=== PATIENT | male | born 1990 | race Caucasian/White ===

== ENCOUNTER 2019-03-17 06:04 | Emergency (ER) | payer SELFPAY ==
[2019-03-17] VITALS (7 sets, daily range): BP systolic 148–164; BP diastolic 94–105; PULSE 78–105; RESP 16–20; TEMP 36.7; O2SAT 92–100; BMI 28.3
[2019-03-17] MEDS: Propofol 200 MG/20 ML Vial IV BOLUS (06:57)
--- NOTE | 2019-03-17 07:13 | ED.DCSUM_ITS ---
- ER Visit Summary Date of Service: 03/17/19 Chief Complaint: Pain and swelling of lip History of Present Illness: The patient is a 28 M who presents with an abscess. Over the past 3 days he does develop redness pain swelling and drainage below his nose and at his upper lip. No history of prior similar symptoms. He is not diabetic. He denies fevers nausea vomiting. No chills. Physical Examination: Afebrile blood pressure 164/98 vitals otherwise normal Patient has a large abscess just below the nose and above the upper lip with some spontaneous drainage just below the nasal septum as well as fluctuance Heart regular rate and rhythm Lungs clear Airway patent Test Results: Not indicated Emergency Department Course and Treatment: Patient has a large abscess in an area that is very difficult to locally anesthetized. I felt this would be best tolerated under procedural sedation. I discussed the risks and benefits of this with the patient. He underwent procedural sedation with IV propofol. The open area that spontaneously draining was extended with an 11 blade and loculations were broken up with a curved hemostat and there was copious purulent drainage. He did have some associated pain but this was otherwise well-tolerated without any immediate complications. Bleeding was controlled with direct pressure. On reevaluation patient is resting comfortably. He will be discharged on Keflex and Bactrim. He was given clear return precautions with specific signs and symptoms to monitor for. He was advised on supportive care including warm compresses. He understands to return for new or worsening symptoms and was discharged home. Treatment Plan: [] Disposition: Discharge Impression: Facial abscess Procedural sedation Incision and drainage of abscess This note was generated with [email or web address] dictation software. It may contain incorrect words, spelling, and punctuation that were not noted in review of the chart prior to signing ED Disposition - Plan for ED Patient: Referrals: Care Physician,No Primary [Primary Care Provider] -
--- NOTE | 2019-03-17 07:13 | ED.DEP ---
ED Disposition - Plan for ED Patient: Instructions: ED Abscess IandD Prescriptions: Cephalexin [Keflex] 500 mg PO Q6 #40 cap Smz/Tmp Ds [Bactrim Ds] 1 tab PO BID #20 tab Referrals: Care Physician,No Primary [Primary Care Provider] -
== END 2019-03-17 07:33 | disposition home or self-care (01) ==
LOC: ED 06:32
PROVIDERS: Emergency Provider Emergency Medicine
DX: L02.01 Cutaneous abscess of face (principal)
CPT/HCPCS: 10060; 99152; 99283; J7030

== ENCOUNTER 2019-09-15 23:16 | Emergency (ER) | payer SELFPAY ==
[2019-03-17 06:05] VITALS: BMI 28.3
[2019-09-15 23:19] VITALS: BP 134/98; PULSE 148; RESP 25; TEMP 36.9; O2SAT 98; BMI 26.5
[2019-09-15 23:25] VITALS: PULSE 133
[2019-09-16 01:00] LABS: Alcohol, Blood (Medical)-Serum < 3.0 mg/dL
[2019-09-16 01:06] LABS: Amphetamine Urine VISTA POSITIVE (<1000 ng/mL); Barbiturate Urine VISTA NEGATIVE (< 200 ng/mL); Benzodiazepine Urine VISTA NEGATIVE (< 200 ng/mL); Cocaine Urine VISTA NEGATIVE (< 300 ng/mL); Ecstacy Urine VISTA POSITIVE (< 500 ng/mL); Methadone Urine VISTA NEGATIVE (< 300 ng/mL); PCP Urine VISTA NEGATIVE (< 25 ng/mL); THC Urine VISTA NEGATIVE (< 50 ng/mL); Vista UDS pH Range 5
--- NOTE | 2019-09-16 01:17 | ED.DCSUM_ITS ---
- ER Visit Summary Date of Service: 09/16/19 Chief Complaint: [Drug overdose] History of Present Illness: The patient is a 28 M [presents to the emergency department via EMS. EMS was summoned to the home of the individual for possible overdose by the patient's girlfriend. EMS has responded the same location multiple times in the past for drug overdose. Patient admitted to using methamphetamines possibly laced with heroin. Patient does have history of using heroin and methamphetamines. On EMS arrival patient was ANO x3. Patient was having some jerking of the upper extremities. On arrival to the ER patient states that he does not really have much recollection of what he may have taken. Patient feels a little confused and just very tired. Patient states he came home from work and was just hanging out with some friends. He denies recent illness. He denies suicidal or homicidal ideation. He denies depression.] Physical Examination: [HEENT-PERRLA, EOMI. Cranial nerves II through XII grossly intact. TMs clear. Mucous membranes moist. No adenopathy. Cardiovascular-regular and tachycardic with heart rate in the 110s on my evaluation of the patient. Lungs-clear to auscultation, chest wall stable without crepitus or subcu emphysema Abdomen-normoactive bowel sounds, soft, nontender, no rebound or rigidity, no peritoneal signs. Extremities-intact ?4, normal range of motion, normal pulses, atraumatic] Test Results: [EtOH was negative. Tox screen was positive for opiates as well as amphetamines and MDMA] Emergency Department Course and Treatment: [Patient was observed on monitor for over 2 hours. He is been up to the restroom several times. He is resting comfortably. He will be observed in the department until he can find a ride home.] Treatment Plan: [Patient advised to follow-up with his primary care physician and also recommended discontinuing drug use and following up as an outpatient with 180.] Disposition: [Discharged home in stable condition] Impression: [Accidental drug overdose Illicit drug use] This note was generated with [employer] software. It may contain incorrect words, spelling, and punctuation that were not noted in review of the chart prior to signing ED Disposition - Plan for ED Patient: Referrals: Care Physician,No Primary [Primary Care Provider] -
--- NOTE | 2019-09-16 01:24 | ED.DEP ---
ED Disposition - Plan for ED Patient: Instructions: Drug Abuse Referrals: Care Physician,No Primary [Primary Care Provider] - Rocky Wilson MD [NON-STAFF] - 5-7 Days Additional Instructions: Follow up with [facility] ([facility])
[2019-09-16 02:23] VITALS: RESP 12
[2019-09-16 05:26] VITALS: PULSE 77; RESP 17; O2SAT 98
[2019-09-16 07:02] VITALS: BP 163/80; PULSE 106; RESP 16; O2SAT 96
== END 2019-09-16 07:03 | disposition home or self-care (01) ==
PROVIDERS: Emergency Provider Emergency Medicine
DX: R41.0 Disorientation, unspecified (principal); T40.601A Poisoning by unspecified narcotics, accidental (unintentional), initial encounter; T43.621A Poisoning by amphetamines, accidental (unintentional), initial encounter; Y92.9 Unspecified place or not applicable; Z72.0 Tobacco use
CPT/HCPCS: 80307; 80320; 99284; G0480

== ENCOUNTER 2019-09-17 10:26 | Emergency (ER) | payer SELFPAY ==
[2019-09-17 10:27] VITALS: BP 150/93; PULSE 119; RESP 21; TEMP 36.1; O2SAT 99; BMI 25.7
--- NOTE | 2019-09-17 11:43 | ED.VIS.GEN ---
History of Present Illness Chief Complaint: Overdose Informant: Patient Onset: Today - JPTA Context: Sudden Onset - see below Timing: Continuous Current Severity: gone Maximum Severity: Severe Narrative: Patient is a known heroin and methamphetamine abuser, his last use was yesterday. He was at someone else's house in the basement where they have some dope, he thinks maybe he was exposed to it or stepped in it or something, he suspects it is fentanyl, and while down there he started to feel high and then passed out. The people who live there had Narcan, and somehow administered it intranasally, woke him up and called EMS. EMS arrived and at that time they got him in the ambulance awake, brought into the emergency department. The patient first remembers being aware in the ambulance although the paramedics did not give him any additional Narcan. He now feels fine, he denies feeling like he injured anything, he had no recent illnesses. Past Medical History - Allergies and Home Meds Allergies/Adverse Reactions: Allergies No Known Allergies Allergy (Verified 09/17/19 10:26) Primary Care Physician: Care Physician,No Primary [Primary Care Provider] - Smoking Status: Current every day smoker Drugs: Heroin, - - Methamphetamine Review of Systems General: Denies: Chills, Fever, Sweats Eyes: Denies: Visual changes - bilaterally, Diplopia ENT: Denies: Rhinorrhea, Sore throat Cardiovascular: Denies: Chest pain, Palpitations Respiratory: Denies: Dyspnea, Cough, Dyspnea on exertion Gastrointestinal: Denies: Abdominal pain, Nausea, Vomiting, Diarrhea, Melena, Hematochezia Genitourinary: Denies: Dysuria, Hematuria, Frequency Musculoskeletal: Denies: Back pain, Extremity Pain Skin: Denies: Rash, Wounds Neurological: Denies: Headache, Weakness, Numbness Psych: Reports: Suicidal thoughts, Suicidal ideations Physical Exam Vital Signs/Narrative: Vital Signs Temp Pulse Resp BP Pulse Ox 09/17/19 10:27 97.0 F L 119 H 21 H 150/93 H 99 Inital Vital Signs reviewed: Yes General: Well nourished, Well developed, No Acute Distress - Well-appearing, conversive, pleasant Head: Normocephalic, Atraumatic Eyes: Perrl, EOMI ENT: Moist mucous membranes, No rhinorrhea Neck: Supple, Nontender Cardiovascular: Regular rate, Regular rhythm, No murmurs, Tachycardia Respiratory: No distress, CTA bilaterally, Chest nontender Abdomen: Soft, Nontender, Nondistended, Normal bowel sounds Back: Nontender, Normal Inspection Extremities: Nontender, No edema. Negative for: Calf Tenderness Skin: Normal color, No rash, No Trauma - No sign of any infected track hendrix on his arms Neurological: Alert, Oriented x3, Cranial nerves II-XII grossly intact, Normal Strength, Normal Sensation, Normal Gait Psychological: Normal affect, Normal Mood Diagnostic/Tx/Re-eval - Medical Decision Making Patient was observed for almost an hour and a half and had no symptoms. This is well beyond when the Narcan should have worn off. He talked with police. He is calling for a ride and I am comfortable discharging him home. Accidental fentanyl overdose due to exposure is suspected. ED Disposition - Plan for ED Patient: Disposition: Home or Assisted Living Diagnosis: Accidental fentanyl overdose Instructions: OVERDOSE, Accidental (Adult) Referrals: [facility] [STAFF PHYSICIAN] - As Needed
== END 2019-09-17 12:11 | disposition home or self-care (01) ==
PROVIDERS: Emergency Provider Emergency Medicine
DX: T40.4X1A Poisoning by other synthetic narcotics, accidental (unintentional), initial encounter (principal); Y92.9 Unspecified place or not applicable; F17.200 Nicotine dependence, unspecified, uncomplicated
CPT/HCPCS: 99283

== ENCOUNTER 2020-06-23 21:28 | Emergency (ER) | payer MEDICAID, SELFPAY ==
[2020-06-23 21:29] VITALS: BP 142/95; PULSE 89; RESP 17; TEMP 36.7; O2SAT 96; BMI 28.5
--- NOTE | 2020-06-23 22:31 | ED.RN ---
PT ASLEEP WHEN THIS RN ENTERS ROOM. WAKES UP WHEN LIGHTLY TOUCHED BUT THEN GOES BACK TO SLEEP. PT UNABLE TO REMEMBER WHAT QUESTIONS WERE ASKED. REPEATED SEVERAL TIMES TO PROVIDE URINE SAMPLE. PT GETS ANGRY WHEN THIS RN KEEPS WAKING HIM UP. UNABLE TO ANSWER HOW I CAN HELP HIM TODAY.
--- NOTE | 2020-06-23 22:35 | ED.VIS.GEN ---
History of Present Illness Chief Complaint: Complaint Informant: Patient Narrative: Presents stating that he has not been able to pee as much as he normally does. He is staying at a facility for narcotic abuse. He denies any urinary symptoms. Denies any STD symptoms. States he does not feel dehydrated. Was hoping get his urine checked. Past Medical History - Allergies and Home Meds Allergies/Adverse Reactions: Allergies No Known Allergies Allergy (Verified 06/23/20 21:28) Primary Care Physician: Care Physician,No Primary [Primary Care Provider] - Prior records reviewed: Yes Past Medical History: None Surgical History: - - Reviewed Smoking Status: Current every day smoker Alcohol: None Review of Systems General: Denies: Chills, Fever, Sweats Eyes: Denies: Visual changes - bilaterally, Diplopia ENT: Denies: Rhinorrhea, Sore throat Cardiovascular: Denies: Chest pain, Palpitations Respiratory: Denies: Dyspnea, Cough, Dyspnea on exertion Gastrointestinal: Denies: Abdominal pain, Nausea, Vomiting, Diarrhea, Melena, Hematochezia Genitourinary: Denies: Dysuria, Hematuria, Frequency Musculoskeletal: Denies: Back pain, Extremity Pain Skin: Denies: Rash, Wounds Neurological: Denies: Headache, Weakness, Numbness Physical Exam Vital Signs/Narrative: Vital Signs Temp Pulse Resp BP Pulse Ox 06/23/20 21:29 98.0 F 89 17 142/95 H 96 General: Well nourished, Well developed, No Acute Distress Head: Normocephalic, Atraumatic Eyes: Perrl, EOMI ENT: Moist mucous membranes, No rhinorrhea Neck: Supple, Nontender Cardiovascular: Regular rate, Regular rhythm, No murmurs Respiratory: No distress, CTA bilaterally, Chest nontender Abdomen: Soft, Nontender, Nondistended, Normal bowel sounds Back: Nontender, Normal Inspection Extremities: Nontender, No edema Skin: Normal color, No rash Neurological: Alert, Oriented x3, Cranial nerves II-XII grossly intact, Normal Strength, Normal Sensation Psychological: Normal affect, Normal Mood Diagnostic/Tx/Re-eval - Medical Decision Making Patient appears intoxicated with illicit substances. I suspect that he may have a left third to do illicit substances here in our facility. Urinalysis will be obtained. Urinalysis shows no evidence of infection. I do not think he has an STD. I feel he was here to get out of his facility and abuse drugs ED Disposition - Plan for ED Patient: Disposition: Home or Assisted Living Diagnosis: Urine abnormality Instructions: Blank Diagnosis Form Referrals: Care Physician,No Primary [Primary Care Provider] - Additional Instructions: Urine testing was normal. Follow-up as an outpatient. Drink plenty of water.
[2020-06-23 23:44] VITALS: RESP 14
[2020-06-24 01:00] VITALS: RESP 14
[2020-06-24 03:00] VITALS: RESP 16
[2020-06-24 05:00] VITALS: RESP 14
[2020-06-24 06:02] LABS: Bacteria 0 SEEN /hpf (None Seen); Color, Urine Yellow (Yellow); Glucose, Dipstick Normal (Normal); Ketone-Dipstick 5 mg/dl (Negative); Leukocyte Esterase-Dipstick Negative /ul (Negative); Mucous, Urine 0 SEEN /hpf (<or=2+); Nitrite-Dipstick Negative (Negative); Occult Blood-Urine Negative /ul (Negative); Protein-Dipstick Negative (Negative); Red Blood Cells-Urine 0 SEEN /hpf (0-5); Squamous Epithelial Cells - UA 0 SEEN /hpf (0-5); Urine Bilirubin Dipstick Negative (Negative); Urine Clarity Clear (Clear); Urine Urobilinogen Normal (Normal); White Blood Cells 0 SEEN /hpf (0-5)
[2020-06-24 06:21] LABS: Amorphous Sediment 1+
[2020-06-24 06:45] VITALS: BP 130/74; PULSE 82; RESP 18; O2SAT 100
== END 2020-06-24 06:45 | disposition home or self-care (01) ==
PROVIDERS: Emergency Medicine; Emergency Provider Emergency Medicine
DX: R82.90 Unspecified abnormal findings in urine (principal); F17.200 Nicotine dependence, unspecified, uncomplicated
CPT/HCPCS: 81001; 99282

== ENCOUNTER → 2020-06-24 09:46 | Outpatient (CLI) | payer MEDICAID, SELFPAY ==
[2020-06-24 09:28] VITALS: BMI 28.5
[2020-06-24 10:45] LABS: Absolute Lymphocyte Count 1.59 X10^3/uL (0.83-4.51); Absolute Neutrophil Count 5.6 X10^3/uL (2.0-7.7); Basophil# 0.04 X10^3/uL; Basophil% 0.5 % (0-1); Eosinophils% 1.2 % (0-5); Hematocrit 44.8 % (40-54); Hemoglobin 14.7 g/dL (13.0-16.5); Lymphocyte # 1.59 X10^3/ul (4.0); Lymphocyte % 19.4 % (19-41); Mean Corp Hgb Conc 32.8 g/dL (32-36); Mean Corpuscular Hgb 27.3 pg (27.0-32.0); Mean Corpuscular Volume 83.1 fL (80-94); Mean Platelet Vol. 10.3 fl (6.2-12.0); Monocyte# 0.85 X10^3/uL; Monocyte% 10.4 % (0-10); NRBC Flagged by Analyzer 0 % (0-5); Neutrophil % 68.3 % (47-70); Platelet Count 261 K/mm3 (150-450); RBC Distribution Width CV 13.1 % (11.6-14.6); RBC Distribution Width SD 39.6 fl (35.1-43.9); Red Blood Count 5.39 M/mm3 (4.6-6.2); White Blood Count 8.2 K/mm3 (4.4-11.0)
[2020-06-24 11:08] LABS: ALB/GLOB Ratio 0.9 RATIO (0.9-2.4); AST(SGOT) 162 U/L (15-37); Alanine Aminotransfer ALT/SGPT 265 U/L (16-61); Albumin, Serum 3.3 g/dL (3.2-5.0); Alkaline Phosphatase 113 U/L (45-117); Anion Gap 3 (5-15); BUN 12 mg/dL (7-18); BUN/Creat Ratio 12.7 RATIO (10-20); Calcium,Total 8.4 mg/dL (8.5-10.1); Chloride 104 mmol/L (98-107); Creatinine, Serum 0.94 mg/dL (0.70-1.30); EST Glomerular Filtration Rate 100 mL/min (>60); Est Glom Filt Rate - Afr Amer 122 mL/min (>60); Globulin 3.8 g/dL (2.2-4.2); Glucose 78 mg/dL (74-106); Potassium 3.8 mmol/L (3.5-5.1); Protein, Total 7.1 g/dL (6.4-8.2); Sodium Level 137 mmol/L (136-145)
[2020-06-24 11:28] LABS: HIV - WCH Non-Reactive (Nonreactive)
[2020-06-26 03:07] LABS: HCV Quant. RNA PCR 5130000 IU/mL (.)
== END ==
PROVIDERS: Referring Provider Nurse Practitioner Family; Visit Provider Nurse Practitioner Family
DX: B19.20 Unspecified viral hepatitis C without hepatic coma (principal); F19.10 Other psychoactive substance abuse, uncomplicated
CPT/HCPCS: 36415; 80053; 84443; 85025; 86703; 87522

== ENCOUNTER 2021-02-13 19:52 | Emergency (ER) | payer MEDICAID, SELFPAY ==
[2020-06-24 09:28] VITALS: BMI 28.5
[2021-02-13 19:53] VITALS: PULSE 75; RESP 18; TEMP 35.8; O2SAT 98; BMI 27.1
--- NOTE | 2021-02-13 20:09 | ED.VIS.DENTA ---
History of Present Illness Chief Complaint: Dental Informant: Patient Onset: Days - 3 Context: Gradual Onset Timing: Continuous Quality: ache Location: left maxillary Current Severity: Severe Maximum Severity: Severe Worsened by: eating, drinking Relieved by: - - nothing, trying NSAIDs Associated Symptoms: - - No fevers, swelling, systemic symptoms, bleeding Narrative: History of dental issues in this area, had a filling that fell out maybe a year ago which started hurting several days ago, gradually worsening. Bad taste in his mouth but no obvious discharge or bleeding. Past Medical History - Allergies and Home Meds Allergies/Adverse Reactions: Allergies bee venom protein (honey bee) Allergy (Severe, Verified 02/13/21 19:55) swelling,throat swells shut Primary Care Physician: Care Physician,No Primary [Primary Care Provider] - Surgical History: - - Reviewed Smoking Status: Current every day smoker Drugs: - - History of remote narcotic addiction Review of Systems General: Denies: Chills, Fever, Sweats ENT: Reports: - - toothache. Denies: Bilateral ear pain, Rhinorrhea, Sore throat Cardiovascular: Denies: Chest pain, Palpitations Respiratory: Denies: Dyspnea, Cough, Dyspnea on exertion Gastrointestinal: Denies: Abdominal pain, Nausea, Vomiting Skin: Denies: Rash, Wounds Neurological: Denies: Headache, Weakness, Numbness Physical Exam Vital Signs/Narrative: Vital Signs Temp Pulse Resp Pulse Ox 02/13/21 19:53 96.4 F L 75 18 98 Inital Vital Signs reviewed: Yes General: Well nourished, Well developed, - - well-appearing, nad Head: Normocephalic, Atraumatic ENT: Moist mucous membranes, No rhinorrhea Mouth/Throat: Normal oral mucosa, No focal abscess, Normal posterior oropharynx, No sublingual edema, Filling loss - w/ resulting large shane and ttp #14, Tenderness on tooth percussion - #12 decayed at gumline, #14. Negative for: Dental abscess, Trismus Neck: Supple, No lymphadenopathy Skin: Normal color, No rash, No Trauma Neurological: Alert, Oriented x3, Cranial nerves II-XII grossly intact, Normal Strength, Normal Sensation, Normal Gait Psychological: Normal affect, Normal Mood Diagnostic/Tx/Re-eval - Medical Decision Making Patient request that he gets no narcotics because of a prior addiction. He took NSAID 2 hours ago and it did not help. He was given Tylenol additionally as well as amoxicillin, given a prescription for amoxicillin and a dental resource list. He is comfortable with that plan. ED Disposition - Plan for ED Patient: Disposition: Home or Assisted Living Diagnosis: Infected dental caries Instructions: ED Dental Cavity Prescriptions: Amoxicillin 500 mg PO TID #30 tablet Prescription Printed Referrals: Dentist,Your [STAFF PHYSICIAN] - As soon as possible (see attached resource list if needed)
[2021-02-13] MEDS: AMOXICILLIN 500 MG CAPSULE PO (20:14)
[2021-02-13] MEDS: Acetaminophen 500 MG Tablet 1000 MG PO (20:14)
[2021-02-13] MEDS: Amoxicillin 250 MG Capsule PO (20:15)
[2021-02-13 20:17] VITALS: BP 144/71; PULSE 75; RESP 18; O2SAT 99
== END 2021-02-13 20:19 | disposition home or self-care (01) ==
LOC: ED 20:15
PROVIDERS: Emergency Provider Emergency Medicine
DX: K04.7 Periapical abscess without sinus (principal); K02.9 Dental caries, unspecified; F11.21 Opioid dependence, in remission; F17.200 Nicotine dependence, unspecified, uncomplicated
CPT/HCPCS: 99283

== ENCOUNTER 2021-07-13 00:09 | Emergency (ER) | payer MEDICAID, SELFPAY ==
[2021-07-13 00:10] VITALS: BP 150/100; PULSE 112; RESP 17; TEMP 36.6; O2SAT 100; BMI 26.9
--- NOTE | 2021-07-13 00:38 | ED.RN ---
PT REPORTS NOT WANTING TO BE SEEN. AMBULATED OUT OF DEPT WITHOUT DIFFICULTY.
== END 2021-07-13 00:38 | disposition left against medical advice (07) ==
PROVIDERS: Emergency Provider Emergency Medicine
DX: T50.901A Poisoning by unspecified drugs, medicaments and biological substances, accidental (unintentional), initial encounter (principal); Z53.21 Procedure and treatment not carried out due to patient leaving prior to being seen by health care provider
CPT/HCPCS: 99283

== ENCOUNTER 2021-09-19 18:29 | Observation (INO) | payer MEDICAID, SELFPAY ==
[2021-09-19 18:30] VITALS: BP 135/86; PULSE 118; RESP 22; TEMP 36.4; O2SAT 98; BMI 26.8
[2021-09-19 19:17] LABS: Absolute Lymphocyte Count 3.23 X10^3/uL (0.83-4.51); Absolute Neutrophil Count 9.6 X10^3/uL (2.0-7.7); Basophil# 0.04 X10^3/uL; Basophil% 0.3 % (0-1); Eosinophil# 0.06 X10^3/uL; Eosinophils% 0.4 % (0-5); Lymphocyte # 3.23 X10^3/ul (0.83-4.51); Lymphocyte % 22.5 % (19-41); Mean Corp Hgb Conc 33.3 g/dL (32-36); Mean Corpuscular Hgb 27.9 pg (27.0-32.0); Mean Corpuscular Volume 83.8 fL (80-94); Mean Platelet Vol. 9.7 fl (6.2-12.0); Monocyte# 1.36 X10^3/uL; Monocyte% 9.5 % (0-10); NRBC Flagged by Analyzer 0 % (0-5); Neutrophil # 9.64 X10^3/uL (2.7-7.7); Platelet Count 276 K/mm3 (150-450); RBC Distribution Width CV 13.8 % (11.6-14.6); RBC Distribution Width SD 42.4 fl (35.1-43.9); Red Blood Count 5.01 M/mm3 (4.6-6.2); White Blood Count 14.4 K/mm3 (4.4-11.0)
--- NOTE | 2021-09-19 19:21 | RAD_ITS ---
EXAM: XR CHEST, 1 VIEW CLINICAL INDICATION: cough TECHNIQUE: Frontal view of the chest. This report was created using [employer] report generation technology. COMPARISON: None. FINDINGS: LUNGS AND PLEURAL SPACES: Unremarkable. No consolidation or edema. No pneumothorax. No effusion. HEART: Unremarkable. Cardiac silhouette not enlarged. MEDIASTINUM: Central airways and mediastinal contour are unremarkable. BONES/JOINTS: Unremarkable. SOFT TISSUES: Unremarkable. RAD/Chest 1 View (Portable) IMPRESSION: No radiographic evidence of acute cardiopulmonary disease. Electronically Signed: Bret Rodrigues MD at 19:58 EST , Service support ,
--- NOTE | 2021-09-19 19:21 | EX.ED.SAOD ---
HPI History of Present Illness Chief Complaint: Substance Abuse Narrative Narrative: 30-year-old male presenting for detox from heroin. He states he uses about a half a gram a day and injects this. Patient also admits to methamphetamine abuse. Patient states his last use of heroin was about an hour and a half prior to arrival. Patient states the last detox when he went to [facility]. He has not been inpatient detox since he was at [facility] years ago. Patient does admit to having a cough, body aches x3 days. He is not had a fever. Patient states that last evening he was vomiting a lot but today has not had any vomiting. He denies abdominal pain. He has no known sick contacts. He is not had COVID-19 and he has not been vaccinated. Patient also complains of an area of abrasion on the right hand which has been seen previously. He was on antibiotics and does not know what these were but quit taking them. It does appear to be improving. [facility] Medical History (Updated 09/19/21 @ 21:38 by Hina Augustin) Hepatitis Smoker Substance abuse Home Medications NK 07/13/21 [History Last Taken Unknown] Allergy/AdvReac Type Severity Reaction Status Date / Time bee venom protein (honey bee) Allergy Severe swelling,throat Verified 09/19/21 18:30 swells shut Social History Smoking Status: Current every day smoker tobacco type: cigarettes alcohol intake: never substance use type: heroin and methamphetamine ROS ROS ED Constitutional Constitutional ED: Reports chills; Denies fever(s) Eyes Eyes: Denies blurry vision or change in vision ENT ENT ED: Denies rhinorrhea or sore throat Cardiovascular Cardiovascular: Denies chest pain or palpitations Respiratory/Chest Respiratory/Chest: Reports cough; Denies dyspnea Gastrointestinal Gastrointestinal: Reports abdominal pain, nausea and vomiting; Denies constipation or diarrhea Genitourinary Genitourinary ED: Denies dysuria or urinary frequency Musculoskeletal Musculoskeletal: Reports myalgias; Denies arthralgias Integumentary Reports other Details: Abrasion to right hand Neurologic Neurologic: Denies headache(s) or weakness Psychiatric Psychiatric: Denies anxiety or depression EXAM Physical Exam Const Vital Signs: 09/19/21 18:30 Temperature 97.6 F L Temperature Source Temporal Pulse Rate 118 H Respiratory Rate 22 H Blood Pressure 135/86 H Blood Pressure Mean 102 Pulse Ox 98 Oxygen Delivery Method Room Air Positive well nourished General Appearance ED: NAD HEENT Reports moist mucous membranes atraumatic Eyes PERRL and EOMs intact bilaterally Resp normal respiratory effort and clear to auscultation bilaterally Cardio regular rhythm Rate: tachycardic GI soft to palpation, non-tender and non-distended Neuro oriented x3 and CN's II-XII intact bilaterally Sensorium / Orientation: alert Skin Skin Narrative: Well-healing abrasion on the right posterior lateral hand. There appears to be granulation tissue and no surrounding erythema. No fluctuance. No lymphangitic streaking. MDM MDM MDM Narrative Medical decision making narrative: Patient presenting for detox from opioids. His tox was also positive for methamphetamine which he admits to using. Opioids are likely negative and his urine drug screen because of fentanyl use. CBC shows a slight leukocytosis of 14.4. Renal function electrolytes are normal. EtOH is negative. Patient discussed with hospitalist for admission for detox. Impression: 1. Opioid abuse 2. Methamphetamine abuse Lab Data Labs: Laboratory Results - last 24 hr 09/19/21 09/19/21 09/19/21 18:55 18:55 18:55 WBC 14.4 H RBC 5.01 Hgb 14.0 Hct 42.0 MCV 83.8 MCH 27.9 MCHC 33.3 RDW Std Deviation 42.4 RDW Coeff of Linda 13.8 Plt Count 276 MPV 9.7 Immature Gran % (Auto) 0.300 Neut % (Auto) 67.0 Lymph % (Auto) 22.5 [place] % (Auto) 9.5 Eos % (Auto) 0.4 Baso % (Auto) 0.3 Absolute Neuts (auto) 9.6 H Absolute Lymphs (auto) 3.23 Nucleated RBC % 0 Sodium 135 L Potassium 4.0 Chloride 104 Carbon Dioxide 25.0 Anion Gap 6 BUN 16 Creatinine 1.16 Estim Creat Clear Calc 103.13 Est GFR (MDRD) Af Amer 95 Est GFR (MDRD) Non-Af 79 BUN/Creatinine Ratio 13.8 Glucose 147 H Calcium 8.5 Urine Opiates Screen Urine Methadone Screen Ur Barbiturates Screen Ur Phencyclidine Scrn Ur Amphetamines Screen U Methamphetamin-MDMA U Benzodiazepines Scrn Urine Cocaine Screen U Cannabinoids Screen Ur Drug Screen Comment Ethyl Alcohol < 3.0 09/19/21 19:05 WBC RBC Hgb Hct MCV MCH MCHC RDW Std Deviation RDW Coeff of Linda Plt Count MPV Immature Gran % (Auto) Neut % (Auto) Lymph % (Auto) [place] % (Auto) Eos % (Auto) Baso % (Auto) Absolute Neuts (auto) Absolute Lymphs (auto) Nucleated RBC % Sodium Potassium Chloride Carbon Dioxide Anion Gap BUN Creatinine Estim Creat Clear Calc Est GFR (MDRD) Af Amer Est GFR (MDRD) Non-Af BUN/Creatinine Ratio Glucose Calcium Urine Opiates Screen NEGATIVE Urine Methadone Screen NEGATIVE Ur Barbiturates Screen NEGATIVE Ur Phencyclidine Scrn NEGATIVE Ur Amphetamines Screen POSITIVE H U Methamphetamin-MDMA POSITIVE H U Benzodiazepines Scrn NEGATIVE Urine Cocaine Screen NEGATIVE U Cannabinoids Screen NEGATIVE Ur Drug Screen Comment Ethyl Alcohol Radiography Diagnostic Testing: Clinical Impression(s) from Imaging Studies Chest X-Ray 09/19/21 19:21 IMPRESSION: No radiographic evidence of acute cardiopulmonary disease. Electronically Signed: Bret Rodrigues MD at 19:58 EST , Service support , Discharge Plan Triage Chief Complaint: Substance Abuse Other Complaint: Upper Extremity Injury ED Provider: Raad Goncalves Dx/Rx/DC Orders Primary Care Provider: Care Physician,No Primary
[2021-09-19 19:31] LABS: Anion Gap 6 (5-15); BUN 16 mg/dL (7-18); BUN/Creat Ratio 13.8 RATIO (10-20); Calcium,Total 8.5 mg/dL (8.5-10.1); Chloride 104 mmol/L (98-107); Creatinine, Serum 1.16 mg/dL (0.70-1.30); EST Glomerular Filtration Rate 79 mL/min (>60); Est Glom Filt Rate - Afr Amer 95 mL/min (>60); Estimated Creatinine Clearance 103.13 ml/min; Glucose 147 mg/dL (74-106); Sodium Level 135 mmol/L (136-145)
[2021-09-19 19:33] LABS: Amphetamine Urine VISTA POSITIVE (<1000 ng/mL); Barbiturate Urine VISTA NEGATIVE (< 200 ng/mL); Benzodiazepine Urine VISTA NEGATIVE (< 200 ng/mL); Cocaine Urine VISTA NEGATIVE (< 300 ng/mL); Ecstacy Urine VISTA POSITIVE (< 500 ng/mL); Methadone Urine VISTA NEGATIVE (< 300 ng/mL); PCP Urine VISTA NEGATIVE (< 25 ng/mL); THC Urine VISTA NEGATIVE (< 50 ng/mL); Vista UDS pH Range 5
[2021-09-19 19:59] LABS: Alcohol, Blood (Medical)-Serum < 3.0 mg/dL
--- NOTE | 2021-09-19 20:26 | PCM.HP.STD ---
HPI - General HPI Narrative DANYELLE COLLADO, is a 30 M who presents to the emergency room requesting detoxification from fentanyl. Patient also has long-term use of methamphetamine. The patient states he has a 2-1/2-year-old son for which she wants to be there for and is motivated to get clean. He denies chest pain shortness of breath fever chills at this present time. He did have a cough and he was not vaccinated for COVID-19 in the ER and his COVID-19 test was ordered. Chest x-ray is unremarkable and patient is afebrile. He will be admitted to general medical floor for opiate withdrawal. [facility] Medical History Hepatitis Home Medications NK 07/13/21 [History Last Taken Unknown] Allergy/AdvReac Type Severity Reaction Status Date / Time bee venom protein (honey bee) Allergy Severe swelling,throat Verified 09/19/21 18:30 swells shut Social History Smoking Status: Current every day smoker tobacco type: cigarettes alcohol intake: never substance use type: heroin and methamphetamine ROS Constitutional Constitutional: Denies chills or fatigue Eyes Eyes: Denies change in vision ENT HEENT: Denies abnormal hearing Cardiovascular Cardiovascular: Denies chest pain Respiratory/Chest Respiratory/Chest: Reports cough; Denies shortness of breath at rest Gastrointestinal Gastrointestinal: Denies abdominal pain Genitourinary Genitourinary: Denies dysuria Musculoskeletal Musculoskeletal: Denies back pain Neurologic Neurologic: Denies abnormal gait Psychiatric Psychiatric: Reports anxiety Vital Signs Vital Signs Vital Signs: 09/19/21 18:30 Temperature 97.6 F L Temperature Source Temporal Pulse Rate 118 H Respiratory Rate 22 H Blood Pressure 135/86 H Blood Pressure Mean 102 Pulse Ox 98 Oxygen Delivery Method Room Air Weight Weight: 197 lb 12.074 oz Body Mass Index (BMI) 26.8 Physical Exam Const oriented x3 and no apparent distress General Appearance: cooperative HEENT normocephalic and head/scalp atraumatic Eyes PERRL and EOMs intact bilaterally Neck supple Lymph Lymphatic: no lymphadenopathy noted Resp normal respiratory effort and clear to auscultation bilaterally Cardio S1 normal heart sound, S2 normal heart sound and no murmurs Rate: tachycardic GI normal to inspection, nondistended, normoactive bowel sounds Extremity no clubbing, cyanosis or edema Skin Skin Narrative: right wrist wound healing Neuro CN's II-XII intact bilaterally Psych affect normal Results Lab / Micro Data Result Diagrams: 09/19/21 18:55 09/19/21 18:55 Labs: Laboratory Results - last 24 hr 09/19/21 18:55: WBC 14.4 H, RBC 5.01, Hgb 14.0, Hct 42.0, MCV 83.8, MCH 27.9, MCHC 33.3, RDW Std Deviation 42.4, RDW Coeff of Linda 13.8, Plt Count 276, MPV 9.7, Immature Gran % (Auto) 0.300, Neut % (Auto) 67.0, Lymph % (Auto) 22.5, Peach % (Auto) 9.5, Eos % (Auto) 0.4, Baso % (Auto) 0.3, Absolute Neuts (auto) 9.6 H, Absolute Lymphs (auto) 3.23, Nucleated RBC % 0 09/19/21 18:55: Sodium 135 L, Potassium 4.0, Chloride 104, Carbon Dioxide 25.0, Anion Gap 6, BUN 16, Creatinine 1.16, Estim Creat Clear Calc 103.13, Est GFR (MDRD) Af Amer 95, Est GFR (MDRD) Non-Af 79, BUN/Creatinine Ratio 13.8, Glucose 147 H, Calcium 8.5 09/19/21 18:55: Ethyl Alcohol < 3.0 09/19/21 19:05: Urine Opiates Screen NEGATIVE, Urine Methadone Screen NEGATIVE, Ur Barbiturates Screen NEGATIVE, Ur Phencyclidine Scrn NEGATIVE, Ur Amphetamines Screen POSITIVE H, U Methamphetamin-MDMA POSITIVE H, U Benzodiazepines Scrn NEGATIVE, Urine Cocaine Screen NEGATIVE, U Cannabinoids Screen NEGATIVE, Ur Drug Screen Comment Radiology Impression Chest X-Ray 09/19/21 19:21 IMPRESSION: No radiographic evidence of acute cardiopulmonary disease. Electronically Signed: Bret Rodrigues MD at 19:58 EST , Service support , Assessment & Plan Assessment/Plan (1) Fentanyl dependence: (2) Methamphetamine abuse: PLAN: 1. Fentanyl abuse?admit patient to general medical floor, place patient on opiate withdrawal protocol, consult child welfare caseworker for outpatient follow-up care 2. Methamphetamine abuse?we'll continue to monitor on telemetry 3. DVT prophylaxis?low molecular weight heparin Charges/Coding Visit Charges Inpatient E&M: 37234 Init Hosp L3
[2021-09-19 21:04] VITALS: BP 135/86; PULSE 118; RESP 22; TEMP 36.4
--- NOTE | 2021-09-19 21:12 | CM.ED ---
SOCIAL WORK Referral Source: Dr. Goncalves Reason for Consult: Substance Abuse Patient presents to ER requesting detox from heroin. Last use today. Call to Nan, Addiction Therapist to update on patient's admission to [facility]. Nan to be in tomorrow to meet with patient. 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
[2021-09-19 21:32] VITALS: BMI 26.6
[2021-09-19 21:53] VITALS: BP 130/71; PULSE 95; RESP 16; TEMP 36.8; O2SAT 93
[2021-09-19 22:26] VITALS: PULSE 95
[2021-09-19] MEDS: BACITRACIN 15 GM Tube 1 APPLIC TOPICAL (22:38)
[2021-09-19 23:09] VITALS: PULSE 91; RESP 17
[2021-09-19 23:58] VITALS: PULSE 93; RESP 18
[2021-09-20] VITALS (8 sets, daily range): BP systolic 111–130; BP diastolic 64–81; PULSE 74–92; RESP 16–18; TEMP 36.6–36.8; O2SAT 94–98
[2021-09-20 07:51] LABS: Absolute Lymphocyte Count 2.56 X10^3/uL (0.83-4.51); Absolute Neutrophil Count 2.8 X10^3/uL (2.0-7.7); Basophil# 0.02 X10^3/uL; Basophil% 0.3 % (0-1); Eosinophil# 0.22 X10^3/uL; Eosinophils% 3.4 % (0-5); Hematocrit 40.3 % (40-54); Hemoglobin 13.2 g/dL (13.0-16.5); Lymphocyte # 2.56 X10^3/ul (0.83-4.51); Lymphocyte % 39.9 % (19-41); Mean Corp Hgb Conc 32.8 g/dL (32-36); Mean Corpuscular Hgb 27.9 pg (27.0-32.0); Mean Corpuscular Volume 85.2 fL (80-94); Mean Platelet Vol. 9.6 fl (6.2-12.0); Monocyte# 0.76 X10^3/uL; Monocyte% 11.8 % (0-10); NRBC Flagged by Analyzer 0 % (0-5); Neutrophil # 2.84 X10^3/uL (2.7-7.7); Neutrophil % 44.3 % (47-70); Platelet Count 218 K/mm3 (150-450); RBC Distribution Width CV 13.9 % (11.6-14.6); RBC Distribution Width SD 43.6 fl (35.1-43.9); Red Blood Count 4.73 M/mm3 (4.6-6.2); White Blood Count 6.4 K/mm3 (4.4-11.0)
[2021-09-20 08:12] LABS: Anion Gap 4 (5-15); BUN 12 mg/dL (7-18); BUN/Creat Ratio 13.7 RATIO (10-20); Calcium,Total 8.2 mg/dL (8.5-10.1); Chloride 103 mmol/L (98-107); Creatinine, Serum 0.88 mg/dL (0.70-1.30); EST Glomerular Filtration Rate 109 mL/min (>60); Est Glom Filt Rate - Afr Amer 131 mL/min (>60); Estimated Creatinine Clearance 135.95 ml/min; Glucose 98 mg/dL (74-106); Potassium 3.2 mmol/L (3.5-5.1); Sodium Level 134 mmol/L (136-145)
--- NOTE | 2021-09-20 08:18 | PCS.PANDOC ---
PANDEMIC DOCUMENTATION INITIATED: Date: 06/20/2021 Time: 190
[2021-09-20 08:25] LABS: Bedside Glucose 93 mg/dL (70-110)
--- NOTE | 2021-09-20 11:00 | ADDICTION ---
This communications writer met with PT to conduct ASAM, MSE, DUDIT assessments and to plan for d/c. PT A+Ox4 and participated actively. All assessments completed, faxed to [facility] and placed in PT's chart. PT plans to f/u with individual counselor at [facility] for follow-up counseling services. PT did not indicate a need for transportation post d/c from [facility].
--- NOTE | 2021-09-20 12:13 | PN.HOSP_ITS ---
Documented by User: Alexis PELAYO 09/20/21 12:17 Subjective Subjective Patient is a 30-year-old male comfortably resting in bed, alert and oriented x3. Patient reports that he has been having some racing thoughts and diffuse muscle aches throughout his body, but denies needing any as needed medications for pain. Does not appear in acute distress. Objective Data Objective Data Vital Signs: Vital Signs Temp Pulse Resp BP Pulse Ox 98.0 F 76 16 126/68 H 94 09/20/21 11:27 09/20/21 11:27 09/20/21 11:27 09/20/21 11:27 09/20/21 11:27 Oxygen Delivery Method Room Air Weight: 195 lb 15.855 oz Body Mass Index (BMI) 26.6 Intake & Output: Intake and Output for Last 24 Hours 09/18/21 09/19/21 09/20/21 23:59 23:59 23:59 Intake Total 440 / 440 640 / 640 Output Total 1800 / 1800 Balance 440 / 440 -1160 / -1160 Lab / Micro Data Result Diagrams: 09/20/21 07:24 09/20/21 07:24 Labs: Laboratory Results - last 24 hr 09/19/21 18:55: WBC 14.4 H, RBC 5.01, Hgb 14.0, Hct 42.0, MCV 83.8, MCH 27.9, MCHC 33.3, RDW Std Deviation 42.4, RDW Coeff of Linda 13.8, Plt Count 276, MPV 9.7, Immature Gran % (Auto) 0.300, Neut % (Auto) 67.0, Lymph % (Auto) 22.5, [place] % (Auto) 9.5, Eos % (Auto) 0.4, Baso % (Auto) 0.3, Absolute Neuts (auto) 9.6 H, Absolute Lymphs (auto) 3.23, Nucleated RBC % 0 09/19/21 18:55: Sodium 135 L, Potassium 4.0, Chloride 104, Carbon Dioxide 25.0, Anion Gap 6, BUN 16, Creatinine 1.16, Estim Creat Clear Calc 103.13, Est GFR (MDRD) Af Amer 95, Est GFR (MDRD) Non-Af 79, BUN/Creatinine Ratio 13.8, Glucose 147 H, Calcium 8.5 09/19/21 18:55: Ethyl Alcohol < 3.0 09/19/21 19:05: Urine Opiates Screen NEGATIVE, Urine Methadone Screen NEGATIVE, Ur Barbiturates Screen NEGATIVE, Ur Phencyclidine Scrn NEGATIVE, Ur Amphetamines Screen POSITIVE H, U Methamphetamin-MDMA POSITIVE H, U Benzodiazepines Scrn NEGATIVE, Urine Cocaine Screen NEGATIVE, U Cannabinoids Screen NEGATIVE, Ur Drug Screen Comment 09/20/21 07:24: WBC 6.4, RBC 4.73, Hgb 13.2, Hct 40.3, MCV 85.2, MCH 27.9, MCHC 32.8, RDW Std Deviation 43.6, RDW Coeff of Linda 13.9, Plt Count 218, MPV 9.6, Immature Gran % (Auto) 0.300, Neut % (Auto) 44.3 L, Lymph % (Auto) 39.9, [place] % (Auto) 11.8 H, Eos % (Auto) 3.4, Baso % (Auto) 0.3, Absolute Neuts (auto) 2.8, Absolute Lymphs (auto) 2.56, Nucleated RBC % 0 09/20/21 07:24: Sodium 134 L, Potassium 3.2 L, Chloride 103, Carbon Dioxide 27.0, Anion Gap 4 L, BUN 12, Creatinine 0.88, Estim Creat Clear Calc 135.95, Est GFR (MDRD) Af Amer 131, Est GFR (MDRD) Non-Af 109, BUN/Creatinine Ratio 13.7, Glucose 98, Calcium 8.2 L 09/20/21 08:19: POC Glucose 93 Micro: Microbiology 09/19/21 19:55 Nasal Secretion SARS-CoV-2 Antigen (Rapid) - Final Radiography Diagnostic Testing: Radiology Impression Chest X-Ray 09/19/21 19:21 IMPRESSION: No radiographic evidence of acute cardiopulmonary disease. Electronically Signed: Bret Rodrigues MD at 19:58 EST , Service support , Physical Exam Const alert, oriented x3 and no apparent distress HEENT head/scalp atraumatic and moist oral mucous membranes Head and Scalp: normocephalic Eyes PERRL, EOMs intact bilaterally and conjunctivae normal Neck no lymphadenopathy, supple and no JVD Resp normal respiratory effort, no retractions, no use of accessory muscles and clear to auscultation bilaterally Cardio regular rate, regular rhythm, no murmurs and no JVD GI normal to inspection, nondistended, normoactive bowel sounds, soft to palpation and non-tender Extremity normal to inspection, full ROM and no clubbing, cyanosis or edema Skin no rashes or lesions noted, no wounds, skin turgor normal and no jaundice Neuro CN's II-XII intact bilaterally Psych affect normal Assessment & Plan Assessment/Plan (1) Fentanyl dependence: (2) Methamphetamine abuse: PLAN: Day 1 Discharge planning: Current plan is to discharge home with outpatient addiction medicine follow-up. 1) fentanyl abuse/impending withdrawal Patient reports ongoing muscle aches and racing thoughts, although denies using or needing any as needed medications. Plan is to continue buprenorphine taper, as needed medications ordered. 2) methamphetamine abuse Urine tox screen positive for amphetamines and methamphetamines. Plan; as above. 3) right sided superficial skin wound Patient reports accidentally semustine his hand at work. Right hand and wrist have been appropriately bandaged, there is no obvious erythema swelling or pain on palpation. Continue bacitracin and wound care nurse. DVT prophylaxis - Lovenox Patient seen by Alexis Peterson PA-C, under the supervision of Dr. Jackson. Documented by User: Dr. Austin Jackson DO 09/20/21 18:17 Objective Data Lab / Micro Data Result Diagrams: 09/20/21 07:24 09/20/21 07:24 Charges/Coding Addendum Addendum: Patient was seen and examined independently of Alexis Peterson, he does not complain of any anxiety or tremor to this examiner, patient does not complain of any muscle aches or nausea at this time. Patient does state that he has been coughing and bringing up green sputum. On examination he appeared in good health and spirits. Vital signs as documented. Skin warm and dry and without overt rashes. Neck without JVD, neck was supple, trachea midline, thyroid was normal. Lungs scattered expiratory wheezes were noted bilaterally, normal air movement was noted. Heart exam notable for regular rhythm, normal sounds and absence of murmurs, rubs or gallops. Abdomen unremarkable and without evidence of organomegaly, masses, or abdominal aortic enlargement. Bowel sounds are present, abdomen is not distended. Extremities nonedematous, no cyanosis was noted, no clubbing was noted. Neuro: Cranial nerves II through XII are grossly intact, no focal motor deficits were noted, sensation to light touch and pinprick intact, motor exam 5/5 throughout. Psych: Patient is alert and oriented x3, he does not appear anxious or depressed, he does not appear agitated. I have decided to place the patient on Zithromax 500 mg p.o. daily x3 days for bacterial bronchitis, he will remain on his present medications otherwise, I have reviewed Alexis Peterson's progress note including his medical assessment and plan of care and endorse it. Visit Charges Inpatient E&M: 48892 Subs Hosp L2
[2021-09-20] MEDS: Dicyclomine 10 MG Capsule 20 MG PO (12:14)
[2021-09-20] MEDS: Methocarbamol 750 MG Tablet 1500 MG PO ×2 (12:14→20:54)
[2021-09-20] MEDS: cloNIDine HCl 0.1 MG Tablet PO (12:14)
[2021-09-20] MEDS: BACITRACIN 15 GM Tube 1 APPLIC TOPICAL (12:15)
[2021-09-20] MEDS: Buprenorphine HCl 2 MG TAB.SUBL SL ×2 (12:15→20:54)
[2021-09-20] MEDS: Gabapentin 300 MG Capsule PO (12:15)
--- NOTE | 2021-09-20 17:16 | CHAPLAIN ---
Type of Pastoral Visit _x__ Initial Visit ___ Follow-up Visit ___ On-call Visit ___ General Patient Visit ___ Spiritual Assessment ___ Family Conference ___ Bereavement ___ Rapid Response ___ Code Blue ___ Other (describe below) Pastoral Care Referral From _x__ Patient ___ Family ___ Nurse ___ Physician ___ Quality Assurance Tester ___ Industrial Pipefitter Journeyman ___ Other (describe below) Sacrament/Intervention _x__ Active listening ___ Anointing ___ Nondenominational ___ Bereavement ___ Communion _x__ Yuliana exploration ___ _x__ Life review _x__ Prayer ___ Reconciliation ___ Sacrament of Sick _x__ Supportive presence ___ Wedding ___ Other (describe below) Pastoral Comments patient has a yuliana based perspective and has a adventism he attends; pt is open to spiritual support and prayer; pt talks about his life and hopes for recovery
[2021-09-21] MEDS: Methocarbamol 750 MG Tablet 1500 MG PO ×2 (04:33→15:33)
[2021-09-21] MEDS: Buprenorphine HCl 2 MG TAB.SUBL SL ×3 (04:33→20:53)
[2021-09-21 04:35] VITALS: BP 118/66; PULSE 74; RESP 18; TEMP 36.6; O2SAT 96
[2021-09-21 07:25] VITALS: O2SAT 91
[2021-09-21 09:40] VITALS: BP 114/67; PULSE 79; RESP 16; TEMP 36.4; O2SAT 96
[2021-09-21] MEDS: cloNIDine HCl 0.1 MG Tablet PO ×2 (09:48→20:53)
[2021-09-21] MEDS: Potassium Chloride Oral Tablet 20 MEQ 40 MEQ PO (09:48)
[2021-09-21] MEDS: Gabapentin 300 MG Capsule PO (09:48)
--- NOTE | 2021-09-21 11:33 | PN.HOSP_ITS ---
Documented by User: Alexis PELAYO 09/21/21 11:39 Subjective Subjective Patient is a 30-year-old male comfortably resting in bed, alert and orient x3. Patient reports significant improvement in racing thoughts and restlessness from yesterday. Still does report ongoing productive cough. Denies development of any new symptoms overnight. Does not appear in acute distress. Objective Data Objective Data Vital Signs: Vital Signs Temp Pulse Resp BP Pulse Ox 97.5 F L 79 16 114/67 96 09/21/21 09:40 09/21/21 09:40 09/21/21 09:40 09/21/21 09:40 09/21/21 09:40 Oxygen Delivery Method Room Air Weight: 195 lb 15.855 oz Body Mass Index (BMI) 26.6 Intake & Output: Intake and Output for Last 24 Hours 09/19/21 09/20/21 09/21/21 23:59 23:59 23:59 Intake Total 440 / 440 1495 / 1495 1155 / 1155 Output Total 2100 / 2100 Balance 440 / 440 -605 / -605 1155 / 1155 Lab / Micro Data Result Diagrams: 09/20/21 07:24 09/20/21 07:24 Micro: Microbiology 09/19/21 19:55 Nasal Secretion SARS-CoV-2 Antigen (Rapid) - Final Physical Exam Const alert, oriented x3 and no apparent distress HEENT head/scalp atraumatic and moist oral mucous membranes Eyes PERRL, EOMs intact bilaterally and conjunctivae normal Neck no lymphadenopathy, supple and no JVD Resp normal respiratory effort, normal air movement and no retractions Effort and Inspection: actively coughing productive (yellow-white) Auscultation: diminished lung sounds Cardio regular rate, regular rhythm, no murmurs and no JVD GI normal to inspection, nondistended, normoactive bowel sounds, soft to palpation and non-tender Extremity normal to inspection, full ROM and no clubbing, cyanosis or edema Skin no rashes or lesions noted, no wounds and skin turgor normal Neuro CN's II-XII intact bilaterally Psych affect normal Assessment & Plan Assessment/Plan (1) Methamphetamine abuse: (2) Fentanyl dependence: (3) Acute bacterial bronchitis: PLAN: Day 2 Discharge planning: Current plan is to discharge home and follow up with [facility] as an outpatient. 1) fentanyl abuse/impending withdrawal Patient denies any ongoing withdrawal symptoms. Reports improvement from yesterday. Plan is to continue buprenorphine taper, as needed medications ordered. 2) methamphetamine abuse Urine tox screen positive for amphetamines and methamphetamines. Plan; as above. 3) right sided superficial skin wound Patient reports accidentally semustine his hand at work. Right hand and wrist have been appropriately bandaged, there is no obvious erythema swelling or pain on palpation. Continue bacitracin and wound care nurse. 4) acute bacterial bronchitis Patient reports a 3-day history of ongoing productive cough, with yellow sputum. Vital signs are stable and patient is afebrile, currently satting 92% on room air. Continue azithromycin. DVT prophylaxis - Lovenox Patient seen by Alexis Peterson PA-C, under the supervision of Dr. Bradford. Documented by User: Dr. Wagner Bradford, 09/21/21 15:13 Subjective Subjective Still coughing with productive phlegm. Objective Data Lab / Micro Data Result Diagrams: 09/20/21 07:24 09/20/21 07:24 Physical Exam Const alert Neck no lymphadenopathy Resp normal respiratory effort, no retractions, no use of accessory muscles and clear to auscultation bilaterally Cardio regular rate, regular rhythm, S1 normal heart sound and S2 normal heart sound GI normal to inspection, nondistended, normoactive bowel sounds, soft to palpation and non-tender Assessment & Plan Assessment/Plan (1) Fentanyl dependence: PLAN: Patient seen and examined independently. Data and vitals reviewed. I agree with the above note by the physician school bus driver/teacher assistant. 1. acute opiate withdrawal ongoing continue buprenorphine 2. acute bronchtitis suspect viral on empiric azithromycin. anticipate DC 09/22 Charges/Coding Visit Charges Inpatient E&M: 65304 Subs Hosp L2
[2021-09-21] MEDS: BACITRACIN 15 GM Tube 1 APPLIC TOPICAL (11:51)
[2021-09-21] MEDS: guaiFENesin 600 MG Tablet PO ×2 (11:54→20:53)
[2021-09-21 15:35] VITALS: BP 110/61; PULSE 76; RESP 18; TEMP 36.8; O2SAT 98
[2021-09-21 20:56] VITALS: BP 116/78; PULSE 83; RESP 18; TEMP 36.6; O2SAT 96
[2021-09-22] MEDS: Buprenorphine HCl 2 MG TAB.SUBL SL ×2 (03:46→13:33)
[2021-09-22] MEDS: Methocarbamol 750 MG Tablet 1500 MG PO ×2 (03:46→10:23)
[2021-09-22 03:52] VITALS: BP 111/61; PULSE 71; RESP 16; TEMP 36.9; O2SAT 97
[2021-09-22 07:05] VITALS: O2SAT 92
[2021-09-22 08:18] LABS: Anion Gap 4 (5-15); BUN 13 mg/dL (7-18); Calcium,Total 8.5 mg/dL (8.5-10.1); Chloride 109 mmol/L (98-107); Creatinine, Serum 0.86 mg/dL (0.70-1.30); EST Glomerular Filtration Rate 110 mL/min (>60); Est Glom Filt Rate - Afr Amer 133 mL/min (>60); Estimated Creatinine Clearance 139.11 ml/min; Glucose 109 mg/dL (74-106); Potassium 3.5 mmol/L (3.5-5.1); Sodium Level 139 mmol/L (136-145)
[2021-09-22 10:12] VITALS: PULSE 76; RESP 16; TEMP 36.7; O2SAT 95
[2021-09-22] MEDS: guaiFENesin 600 MG Tablet PO (10:13)
[2021-09-22] MEDS: Potassium Chloride Oral Tablet 20 MEQ 40 MEQ PO (10:13)
[2021-09-22] MEDS: BACITRACIN 15 GM Tube 1 APPLIC TOPICAL (10:13)
[2021-09-22] MEDS: Gabapentin 300 MG Capsule PO (10:23)
[2021-09-22 10:32] VITALS: BP 120/70
--- NOTE | 2021-09-22 13:06 | ADDICTION ---
This worker met w/PT to discuss d/c planning. PT would like to continue MAT. This worker made PT an appointment w/Dr. Russell on 09/23/21 at 11:30am.
--- NOTE | 2021-09-22 14:29 | PCM.DC ---
Discharge Instructions Diet Discharge Diet: No restrictions Activity Discharge Activity: Return to Normal Activity Follow Up Care Test Results: Test results from this visit will be discussed in further detail at your follow-up appointment, if applicable. Discharge Plan Admission Admit Date/Time: 09/19/21 20:30 Primary Reason for Your Visit: Opiate withdrawal Attending Provider: Wagner Bradford Primary Care Provider: Donato Sultana,Taylor Primary Discharge Orders/Prescriptions Prescriptions: New guaifenesin [Mucus Relief ER] 600 mg Tablet Extended Release 12hr 600 mg PO BID Qty: 10 RF: 0 Referrals / Follow Up: Care Physician,No Primary [Primary Care Provider] - Disposition Disposition (needs filled in before D/C Order can be placed): Home, Self Care
--- NOTE | 2021-09-22 14:41 | PCM.DC.SUM ---
Providers Date of Admission: 09/19/21 Primary Care Physician: Taylor Primary Care Phys Reason For Visit: FENTANYL WITHDRAWL Diagnosis Discharge Diagnosis (1) Fentanyl dependence: Status: Acute Code(s): F11.20 - Opioid dependence, uncomplicated Medications at Discharge Home Medications guaifenesin [Mucus Relief ER] 600 mg PO BID #10 tab 09/22/21 Hospital Course Operations None Procedures None Summary of Care Provided Minutes Spent on Discharge: 35 Hospital Course: This is a 30-year-old male presents with requesting treatment for acute opiate withdrawal. Patient was put on buprenorphine taper as well as additional agents to help him with somatic complaints. Patient's course was uncomplicated other than bronchitis. Patient was put on azithromycin empirically for possible bacterial pneumonia. Patient did have any improvement but he remained stable and did not get worse while he was here. His Covid rapid was negative. Today was day was he can be discharged and he was concerned about not getting buprenorphine since his fall appointment was not until the . I discussed with pharmacy in regards to getting that for him only to find out the patient would not be following up with anyone so since he is not can be following up with anyone directly that would not be prescribing him any buprenorphine upon discharge. Physical Exam Const alert Resp normal respiratory effort, no retractions, no use of accessory muscles and clear to auscultation bilaterally Cardio regular rate, regular rhythm, S1 normal heart sound and S2 normal heart sound GI normal to inspection, nondistended, normoactive bowel sounds, soft to palpation, non-tender and non-distended Weight / BMI Weight Weight: 88.9 kg Body Mass Index (BMI) 26.6 ABG / Lab / Microbiology Data Result Diagrams: 09/20/21 07:24 09/22/21 07:12 Laboratory: Laboratory Results - last 24 hr 09/22/21 07:12: Sodium 139, Potassium 3.5, Chloride 109 H, Carbon Dioxide 26.0, Anion Gap 4 L, BUN 13, Creatinine 0.86, Estim Creat Clear Calc 139.11, Est GFR (MDRD) Af Amer 133, Est GFR (MDRD) Non-Af 110, BUN/Creatinine Ratio 15.0, Glucose 109 H, Calcium 8.5 Microbiology: Microbiology 09/19/21 19:55 Nasal Secretion SARS-CoV-2 Antigen (Rapid) - Final D/C Instructions Discharge Diet: No restrictions Meaningful Use Info Meaningful Use Diagnoses (Choose all that apply): None applicable Discharge Plan Admission Admit Date/Time: 09/19/21 20:30 Primary Reason for Your Visit: Opiate withdrawal Attending Provider: Wagner Bradford Primary Care Provider: Care Physician,No Primary Discharge Orders/Prescriptions Prescriptions: New guaifenesin [Mucus Relief ER] 600 mg Tablet Extended Release 12hr 600 mg PO BID Qty: 10 RF: 0 Referrals / Follow Up: Care Physician,No Primary [Primary Care Provider] - Disposition Disposition (needs filled in before D/C Order can be placed): Home, Self Care Charges/Coding Visit Charges Inpatient E&M: 47318 Disch Hosp
--- NOTE | 2021-09-22 15:02 | NURSING ---
Addendum entered by Atul Sandra 09/22/21 15:10: discharge entered by Dr. Bradford - attempted to go over papers with pt - who didnt listen and was leaving. Original Note: pt pulled out own IV and opened his totes - dressed and leaving ama - paper signed
== END 2021-09-22 15:00 | disposition home or self-care (01) | DRG 773 ==
LOC: ED 18:58 → MS2 09-20 07:28
PROVIDERS: Internal Medicine; Physician Assistant; Admitting Provider Family Medicine; Emergency Provider Student in an Organized Health Care Education/Training Program
DX: F11.23 Opioid dependence with withdrawal (principal); F15.10 Other stimulant abuse, uncomplicated; J15.9 Unspecified bacterial pneumonia; J20.9 Acute bronchitis, unspecified; Z20.822 Contact with and (suspected) exposure to COVID-19; F17.210 Nicotine dependence, cigarettes, uncomplicated; Z86.19 Personal history of other infectious and parasitic diseases; S60.921A Unspecified superficial injury of right hand, initial encounter; X58.XXXA Exposure to other specified factors, initial encounter; Y93.9 Activity, unspecified; Y99.0 Civilian activity done for income or pay; Y92.89 Other specified places as the place of occurrence of the external cause
CPT/HCPCS: 36415; 71045; 80048; 80307; 82077; 82962; 85025; 87426; 96365; 96366; 99218; 99281; 99283; G0378